=== PATIENT | female | born 1950 | race Caucasian/White ===

== ENCOUNTER 2017-03-03 07:34 | Outpatient (CLI) | payer BC, OTHER ==
[2017-03-03] MEDS ORDERED: DIATR MEGLU/DIATRIZ SOD 30 ML SOLUTION PO ONE (08:02)
[2017-03-03] MEDS ORDERED: IOHEXOL 100 ML IV ONE (09:24)
== END 2017-03-03 19:11 | disposition home or self-care (01) ==
LOC: SCT 07:34
PROVIDERS: ATTEND Internal Medicine Gastroenterology
DX: K57.30 Diverticulosis of large intestine without perforation or abscess without bleeding (principal)
CPT/HCPCS: 74177; Q9964; Q9967

== ENCOUNTER 2017-03-18 09:30 | Day surgery (SDC) | payer OTHER, BC ==
[2017-03-18] MEDS: MIDAZOLAM HCL 5 MG/5 ML VIAL ONE ×4 (12:35→12:42)
[2017-03-18] MEDS ORDERED: MEPERIDINE HCL/PF 100 MG/ML AMP ONE (12:41)
[2017-03-18] MEDS ORDERED: MIDAZOLAM HCL 5 MG/5 ML VIAL ONE (12:42)
[2017-03-18] MEDS ORDERED: SIMETHICONE 40 MG/0.6 ML ML ONE (12:42)
[2017-03-18 17:40] VITALS: BP_SYST 93
== END 2017-03-18 14:00 | disposition home or self-care (01) ==
LOC: SDS 09:30 → SMU 10:22 → SDS 14:00
PROVIDERS: ATTEND Internal Medicine Gastroenterology
DX: K57.30 Diverticulosis of large intestine without perforation or abscess without bleeding (principal); K64.8 Other hemorrhoids; R63.4 Abnormal weight loss; R19.4 Change in bowel habit; Z87.19 Personal history of other diseases of the digestive system
CPT/HCPCS: 45378; J2175; J2250

== ENCOUNTER 2017-09-17 10:40 | Inpatient (IN) | payer OTHER, BC ==
[~2017-09-17] VITALS: Ht 160 cm; Wt 57.6 kg
[2017-09-17 10:46] VITALS: BP_SYST 131
[2017-09-17] MEDS ORDERED: NACL 0.9% 1,000 ML IV ONE (10:48)
[2017-09-17] MEDS ORDERED: methylPREDNISolone SOD SUCC/PF 62.5 MG/ML VIAL IVP ONE (11:00)
[2017-09-17] MEDS ORDERED: ALBUTEROL SULFATE 0.083% 2.5 MG/3 ML VIAL.NEB IH ONE (11:00)
[2017-09-17] MEDS ORDERED: IPRATROPIUM BROM 0.5 MG/2.5 ML VIAL.NEB (ATROVENT) IH ONE (11:00)
[2017-09-17] MEDS ORDERED: oxycodone (11:13)
[2017-09-17] MEDS ORDERED: IMI50 PO (11:13)
[2017-09-17] MEDS ORDERED: DEXL60CA3 PO (11:13)
[2017-09-17] MEDS ORDERED: SERT100T PO (11:13)
[2017-09-17] MEDS ORDERED: ARIP2TAB9 PO (11:13)
[2017-09-17] MEDS ORDERED: FLEC50TA2 PO (11:13)
[2017-09-17] MEDS ORDERED: fosamax (11:13)
[2017-09-17] MEDS ORDERED: TOPI100T11 PO (11:13)
[2017-09-17] MEDS ORDERED: RANI-362 PO (11:13)
[2017-09-17 11:26] LABS: BASOPHILS % (AUTO) 0.5 % (0.0-2.0); EOSINOPHILS % (AUTO) 0.1 % (0.0-4.0); HEMATOCRIT 41.8 % (36-48); HEMOGLOBIN 14.1 g/dL (12.0-16.0); LYMPHOCYTES % (AUTO) 11.4 % (20.5-51.5); MEAN CORPUSCULAR HEMOGLOBIN 31 pg (27-31); MEAN CORPUSCULAR HGB CONC 34 % (32-36); MEAN CORPUSCULAR VOLUME 92 fL (79.0-98.0); MONOCYTES # (AUTO) 0.6 K/uL (0.0-1.0); MONOCYTES % (AUTO) 6.6 % (1.7-9.3); NEUTROPHILS # (AUTO) 6.7 K/uL (1.8-7.7); NEUTROPHILS % (AUTO) 81.4 % (40.0-70.0); PLATELET COUNT (AUTO) 219 K/uL (130-430); RED BLOOD CELL COUNT(AUTO) 4.52 MIL/uL (4.2-6.2); RED CELL DISTRIBUTION WIDTH 12.3 % (9.0-15.0); WHITE BLOOD COUNT (AUTO) 8.3 K/uL (4.8-10.8)
[2017-09-17 11:36] LABS: BILIRUBIN,URINE NEGATIVE (NEGATIVE); BLOOD, URINE 2+ (NEGATIVE); CLARITY/URINE CLEAR (CLEAR); COLOR,URINE YELLOW (YELLOW); GLUCOSE,URINE NEGATIVE (NEGATIVE); KETONES,URINE TRACE (NEGATIVE); LEUKOCYTE ESTERASE ,URINE NEGATIVE (NEGATIVE); NITRITE, URINE NEGATIVE (NEGATIVE); PROTEIN URINE NEGATIVE (NEGATIVE); UROBILINOGEN,URINE 0.2 (0.2-1.0)
[2017-09-17 11:38] LABS: INR 1.1 (0.8-1.2); PROTHROMBIN TIME 11.1 SECS (9.5-12.5)
[2017-09-17 11:40] LABS: ALBUMIN 4.3 g/dL (3.4-4.8); CALCIUM 9.7 mg/dL (8.4-11.0); CREATININE 0.81 mg/dL (0.55-1.30); POTASSIUM 3.4 mmol/L (3.5-5.1); TOTAL BILIRUBIN 0.5 mg/dL (0.0-1.0)
[2017-09-17 11:51] LABS: BACTERIA,URINE FEW /HPF (None Seen); MUCUS,URINE 1+ /LPF (None Seen); WBC,URINE 0-3 /HPF (0-3)
[2017-09-17] MEDS ORDERED: IOHEXOL 350 mgI/mL, 150 ML INFUS..BTL IV ONE (13:17)
[2017-09-17] MEDS ORDERED: ACETAMINOPHEN 325 MG TABLET PO PRN (15:15)
[2017-09-17] MEDS ORDERED: ONDANSETRON HCL 4 MG/2 ML VIAL IVP PRN (15:15)
[2017-09-17 15:31] VITALS: BP_SYST 112
[2017-09-17] MEDS ORDERED: IBUPROFEN 400 MG TABLET PO SCH (16:15)
[2017-09-17] MEDS ORDERED: ZOLP10TA2 PO (16:49)
[2017-09-17] MEDS ORDERED: SUMAtriptan SUCCINATE 50 MG TABLET PO PRN (17:00)
[2017-09-17] MEDS: IBUPROFEN 400 MG TABLET PO PRN (17:54)
[2017-09-17] MEDS: LORazepam 1 MG TABLET PO PRN (17:54)
[2017-09-17] MEDS: 0.45% NACL 1,000 ML IV SCH (17:55)
[2017-09-17 20:00] VITALS: BP_SYST 95
[2017-09-17] MEDS: ZOLPIDEM TARTRATE 5 MG TABLET PO PRN (21:34)
[2017-09-18 02:16] VITALS: BP_SYST 111
[2017-09-18] MEDS: 0.45% NACL 1,000 ML IV SCH ×2 (04:24→18:31)
[2017-09-18 06:22] LABS: BASOPHILS % (AUTO) 0.4 % (0.0-2.0); EOSINOPHILS % (AUTO) 0.1 % (0.0-4.0); HEMATOCRIT 35.8 % (36-48); HEMOGLOBIN 12.1 g/dL (12.0-16.0); LYMPHOCYTES # (AUTO) 1.6 K/uL (1.0-5.5); LYMPHOCYTES % (AUTO) 17.5 % (20.5-51.5); MEAN CORPUSCULAR HEMOGLOBIN 31 pg (27-31); MEAN CORPUSCULAR HGB CONC 34 % (32-36); MEAN CORPUSCULAR VOLUME 93 fL (79.0-98.0); MONOCYTES # (AUTO) 0.6 K/uL (0.0-1.0); MONOCYTES % (AUTO) 6.2 % (1.7-9.3); NEUTROPHILS # (AUTO) 6.8 K/uL (1.8-7.7); NEUTROPHILS % (AUTO) 75.8 % (40.0-70.0); PLATELET COUNT (AUTO) 170 K/uL (130-430); RED BLOOD CELL COUNT(AUTO) 3.85 MIL/uL (4.2-6.2); RED CELL DISTRIBUTION WIDTH 12.3 % (9.0-15.0)
[2017-09-18 07:10] LABS: ALBUMIN 3.3 g/dL (3.4-4.8); CALCIUM 8.5 mg/dL (8.4-11.0); CREATININE 0.66 mg/dL (0.55-1.30); POTASSIUM 3.4 mmol/L (3.5-5.1); TOTAL BILIRUBIN 0.4 mg/dL (0.0-1.0)
[2017-09-18 08:00] VITALS: BP_SYST 110
[2017-09-18] MEDS: LORazepam 1 MG TABLET PO PRN (08:37)
[2017-09-18] MEDS: SERTRALINE HCL 50 MG TABLET PO SCH (08:38)
[2017-09-18] MEDS ORDERED: POTASSIUM CHLORIDE 20 MEQ TAB.PRT.SR PO ONE (09:15)
[2017-09-18 11:59] VITALS: BP_SYST 105
[2017-09-18] MEDS: IBUPROFEN 400 MG TABLET PO PRN ×2 (12:16→20:10)
[2017-09-18] MEDS ORDERED: IOHEXOL 100 ML IV ONE (12:44)
[2017-09-18 16:03] VITALS: BP_SYST 109
[2017-09-18 20:00] VITALS: BP_SYST 109
[2017-09-18] MEDS: ZOLPIDEM TARTRATE 5 MG TABLET PO PRN (21:01)
[2017-09-18 23:25] VITALS: BP_SYST 117
[2017-09-19] MEDS: LORazepam 1 MG TABLET PO PRN ×3 (06:37→21:03)
[2017-09-19 08:00] VITALS: BP_SYST 110
[2017-09-19] MEDS: SERTRALINE HCL 50 MG TABLET PO SCH (08:31)
[2017-09-19] MEDS: 0.45% NACL 1,000 ML IV SCH (08:32)
[2017-09-19] MEDS: IBUPROFEN 400 MG TABLET PO PRN (08:36)
[2017-09-19 11:34] LABS: THYROID STIMULATING HORMONE 0.51 uIu/mL (0.36-3.74)
[2017-09-19 11:55] VITALS: BP_SYST 113
[2017-09-19] MEDS: MORPHINE 4 MG/ML INJ. SYRINGE IVP PRN ×2 (13:17→20:24)
[2017-09-19] MEDS ORDERED: METOPROLOL SUCCINATE 25 MG TAB.SR.24H (TOPROL XL) PO ONE (13:45)
[2017-09-19] MEDS ORDERED: DIATR MEGLU/DIATRIZ SOD 30 ML SOLUTION PO ONE (14:38)
[2017-09-19 16:02] VITALS: BP_SYST 110
[2017-09-19] MEDS ORDERED: IOHEXOL 100 ML IV ONE (17:07)
[2017-09-19 20:47] VITALS: BP_SYST 96
[2017-09-20] MEDS ORDERED: METOPROLOL SUCCINATE 25 MG TAB.SR.24H (TOPROL XL) PO SCH (09:00)
== END 2017-09-19 21:18 | disposition home or self-care (01) | DRG 880 ==
LOC: SED 10:40 → STU 12:06 → SED 12:06 → STU 15:08
PROVIDERS: ADMIT Internal Medicine; ATTEND Internal Medicine
DX: F41.9 Anxiety disorder, unspecified (principal); I47.1 Supraventricular tachycardia; F32.9 Major depressive disorder, single episode, unspecified; G43.909 Migraine, unspecified, not intractable, without status migrainosus; R07.89 Other chest pain; I25.10 Atherosclerotic heart disease of native coronary artery without angina pectoris; R79.1 Abnormal coagulation profile; M81.0 Age-related osteoporosis without current pathological fracture; Z86.711 Personal history of pulmonary embolism; I49.1 Atrial premature depolarization; G89.29 Other chronic pain; R10.30 Lower abdominal pain, unspecified
CPT/HCPCS: 36415; 70470-TC; 71045; 71260-TC; 80053; 81000-TC; 82550-TC; 83690-TC; 83880; 84443-TC; 84484; 85025; 85379; 85610-TC; 85730-TC; 93005; 93306; 93970; 94640; 96361; 96374; 99285; J2270; J2930; Q9964; Q9967